=== PATIENT | male | born 1960 | race Caucasian/White ===

== ENCOUNTER 2016-09-04 17:27 | Emergency (ER) | payer OTHER ==
[~2016-09-04] VITALS: Ht 180.3 cm; Wt 72.5 kg
[2016-09-04 18:31] LABS: BASOPHIL COUNT 0.1 K/uL (0-0.1); EOSINOPHIL (%) 0.9 % (0-5); EOSINOPHIL COUNT 0.1 K/uL (0-0.3); HEMATOCRIT 32.8 % (38.0-50.0); IMMATURE GRANULOCYTE (%) 0.6 % (0.0-0.7); IMMATURE GRANULOCYTE COUNT 0.1 K/uL; MCHC 31.7 G/DL (30.0-36.0); MCV 97.9 FL (86-99); MEAN PLAT.VOLUME 11.6 uM^3 (9.0-12.4); MONOCYTE (%) 7.2 % (3-12); MONOCYTE COUNT 0.6 K/uL (0-0.8); NEUTROPHIL (%) 67.7 % (45-76); PLATELET COUNT 222 K/uL (156-360); RBC DIS.WIDTH-CV 18.6 % (11.8-14.6); RBC DIS.WIDTH-SD 66.9 % (39-53); RED BLOOD COUNT 3.35 M/uL (4.00-5.50); WHITE BLOOD COUNT 8.9 K/uL (4.1-10.2)
[2016-09-04 18:43] LABS: CHLORIDE 110 mEq/L (99-109); POTASSIUM 5.2 mEq/L (3.7-5.4); SODIUM 139 mEq/L (136-147)
[2016-09-04 18:46] LABS: GLUCOSE 205 mg/dL (70-99)
[2016-09-04 18:47] LABS: ANION GAP 8 MEQ/L (2-14)
[2016-09-04 18:48] LABS: TOTAL BILIRUBIN 0.3 mg/dL (0.0-1.0)
[2016-09-04 18:49] LABS: ALKALINE PHOSPHATASE 278 IU/L (3-129)
[2016-09-04 18:50] LABS: GFR ESTIMATE (CALCULATED) 18 mL/min/
[2016-09-04 18:50] LABS: D-DIMER ELISA 3.94 mg/L FEU (< 0.57)
[2016-09-04 18:51] LABS: TROP-I INTERPRETATION NEGATIVE; TROPONIN-I 0.05 ng/mL (0.0-0.30); UREA NITROGEN (BUN) 47 mg/dL (9-23)
[2016-09-04 20:24] LABS: INTER. NORMALIZED RATIO 1.2; PTT 29.1 (25-32)
[2016-09-04 22:26] VITALS: BP 118/71
== END 2016-09-04 22:27 | disposition left against medical advice (07) ==
LOC: EME 17:27 → EDBD 17:27 → EDSEX 17:27 → EME 22:27
PROVIDERS: Emergency Medicine
DX: I25.110 Atherosclerotic heart disease of native coronary artery with unstable angina pectoris (principal); I50.9 Heart failure, unspecified; R06.02 Shortness of breath; M79.89 Other specified soft tissue disorders; Z95.1 Presence of aortocoronary bypass graft; R79.1 Abnormal coagulation profile; Z95.5 Presence of coronary angioplasty implant and graft; N19 Unspecified kidney failure; E11.65 Type 2 diabetes mellitus with hyperglycemia; R74.0 Nonspecific elevation of levels of transaminase and lactic acid dehydrogenase [LDH]; D64.9 Anemia, unspecified; F17.200 Nicotine dependence, unspecified, uncomplicated; Z71.6 Tobacco abuse counseling
CPT/HCPCS: 71010; 80053; 83880; 84484; 85025; 85379; 85610; 85730; 93005; 93970; 99281; 99285; J1940; J2270